=== PATIENT | female | born 1950 | race Caucasian/White ===

== ENCOUNTER 2023-05-08 06:20 | Emergency (ER) | payer MEDICARE ==
[~2023-05-08] VITALS: Ht 165.1 cm; Wt 70.0 kg
[2023-05-08 06:36] VITALS: BP 0/0; PULSE 0; RESP 0; O2SAT 0
[2023-05-08] MEDS ORDERED: DOPAMINE 400MG/250ML PREMIX 250 ML IV ONE (06:37)
[2023-05-08] MEDS ORDERED: MIDAZOLAM HCL 5 MG/5 ML VIAL ONE (06:49)
[2023-05-08] MEDS ORDERED: HEPARIN 1000 UNITS/ML 10ML ONE (06:49)
[2023-05-08] MEDS ORDERED: MIDAZOLAM HCL 2 MG/2 ML VIAL ONE (06:49)
[2023-05-08] MEDS ORDERED: IODIXANOL 320MG/ML 100 ML BOTTLE IV ONE (06:49)
[2023-05-08] MEDS ORDERED: FENTANYL CITRATE/PF 50MCG/ML 2ML VIAL ONE (06:50)
== END 2023-05-08 06:54 ==
LOC: ER 06:20
DX: I46.9 Cardiac arrest, cause unspecified (principal); I21.3 ST elevation (STEMI) myocardial infarction of unspecified site; I10 Essential (primary) hypertension; E11.9 Type 2 diabetes mellitus without complications
CPT/HCPCS: 99285; 92950; 93005; Q9967; J2250; J1265; J1644; J3010